=== PATIENT | female | born 1990 | race Caucasian/White ===

== ENCOUNTER 2016-08-06 11:49 | Emergency (ER) | payer BC ==
--- NOTE | 2016-08-06 12:29 | ER Document Report ---
ED Medical Screen (RME) - General Stated Complaint: CHEST PAIN Notes: 26 yo female c/o syncopal episode x 2 this past thursday. hit head when she passed out. c/o dizziness since then. + headache + chest pain since this morning. feels disoriented. substernal chest pain. shortness of breath last night. pt is nonsmoker. + fam cardiac hx. TRAVEL OUTSIDE OF THE [place] IN LAST 30 DAYS: No - Related Data Allergies/Adverse Reactions: No Known Allergies Allergy (Verified 05/14/15 19:24) Physical Exam - Vital signs Vitals: Temp Pulse Resp BP Pulse Ox 98.1 F 74 16 137/87 H 100 08/06/16 12:20 08/06/16 12:20 08/06/16 12:20 08/06/16 12:20 08/06/16 12:20 Course - Vital Signs Vital signs: Temp Pulse Resp BP Pulse Ox 98.1 F 74 16 137/87 H 100 08/06/16 12:20 08/06/16 12:20 08/06/16 12:20 08/06/16 12:20 08/06/16 12:20
[2016-08-06 13:00] LABS: ABSOLUTE EOSINOPHILS # (AUTO) 0.1 10^3/uL (0.0-0.6); ABSOLUTE LYMPHOCYTES (AUTO) 1.8 10^3/uL (0.5-4.7); ABSOLUTE MONOCYTES (AUTO) 0.7 10^3/uL (0.1-1.4); BASOPHILS % (AUTO) 0.3 % (0-2); EOSINOPHILS % (AUTO) 0.7 % (0-6); HEMATOCRIT 36.3 % (36.0-47.0); HEMOGLOBIN 11.5 g/dL (12.0-15.5); HGB HCT DIFFERENCE -1.8; LYMPHOCYTES % (AUTO) 20.8 % (13-45); MEAN CORPUSCULAR HEMOGLOBIN 26.2 pg (27.0-33.4); MEAN CORPUSCULAR HGB CONC 31.7 g/dL (32.0-36.0); MEAN CORPUSCULAR VOLUME 83 fl (80-97); MONOCYTES % (AUTO) 7.7 % (3-13); RED BLOOD COUNT 4.39 10^6/uL (3.72-5.28); RED CELL DISTRIBUTION WIDTH 15.7 % (11.5-14.0); SEGMENTED NEUTROPHILS % (AUTO) 70.5 % (42-78); WHITE BLOOD COUNT 8.5 10^3/uL (4.0-10.5)
[2016-08-06 13:11] LABS: APPEARANCE,URINE CLEAR; BILIRUBIN,URINE NEGATIVE (NEGATIVE); GLUCOSE, URINE NEGATIVE (NEGATIVE); KETONES,URINE NEGATIVE (NEGATIVE); LEUKOCYTE ESTERASE,URINE NEGATIVE (NEGATIVE); NITRITE,URINE NEGATIVE (NEGATIVE); PROTEIN,URINE NEGATIVE (NEGATIVE); URINE SPECIFIC GRAVITY 1.016; UROBILINOGEN,URINE NEGATIVE mg/dL (<2.0)
[2016-08-06 13:26] LABS: ALANINE AMINOTRANSFERASE 29 U/L (9-52); ALBUMIN 4.1 g/dL (3.5-5.0); ALKALINE PHOSPHATASE 84 U/L (38-126); ANION GAP 11 (5-19); ASPARTATE AMINO TRANSFERASE 15 U/L (14-36); BILIRUBIN,TOTAL 0.4 mg/dL (0.2-1.3); BLOOD UREA NITROGEN 13 mg/dL (7-20); CALCIUM 9.8 mg/dL (8.4-10.2); CARBON DIOXIDE 28 mmol/L (22-30); CHLORIDE 101 mmol/L (98-107); CREATINE KINASE 51 U/L (30-135); CREATININE RESULT 0.81 mg/dL (0.52-1.25); GLUCOSE 69 mg/dL (75-110); LIPASE 63.9 U/L (23-300); POTASSIUM 4.5 mmol/L (3.6-5.0); SODIUM 140.3 mmol/L (137-145); TOTAL PROTEIN 7.4 g/dL (6.3-8.2)
[2016-08-06 13:50] LABS: CREATINE KINASE MB < 0.22 ng/mL (<4.55); TROPONIN I < 0.012 ng/mL
--- NOTE | 2016-08-06 14:16 | ER Document Report ---
ED Dizziness/Weakness - General Chief Complaint: Dizziness Stated Complaint: CHEST PAIN Information source: Patient Notes: 26-year-old female with past medical history as recorded who presents today stating around Thursday she started to have some intermittent chest pain with "lightheadedness. She did have nausea without vomiting. Patient states she passed out twice. These were unwitnessed. Patient and family states that the patient has a long history of syncopal like episodes. She has not fainted since Thursday. She states the pain that she feels in her chest as substernal without radiation. She denies any vomiting, fevers, or diarrhea. She denies any dysuria, or missed menstrual periods. She denies any and all lower abdominal pain. TRAVEL OUTSIDE OF THE [place] IN LAST 30 DAYS: No - HPI Patient complains to provider of: Dizziness Onset: Other - See above Onset/Duration: Gradual Quality of pain: Fullness, Pressure Severity: Moderate Pain Level: Denies Associated symptoms: Other - See above Exacerbated by: Change in position - Related Data Allergies/Adverse Reactions: venom-honey bee Allergy (Verified 08/06/16 12:25) Past Medical History - General Information source: Patient - Social History Smoking Status: Never Smoker Cigarette use (# per day): No Chew tobacco use (# tins/day): No Smoking Education Provided: No Frequency of alcohol use: None Drug Abuse: None Family History: Reviewed & Not Pertinent Patient has suicidal ideation: No Patient has homicidal ideation: No Renal/ Medical History: Denies: Hx Peritoneal Dialysis Review of Systems - Review of Systems Constitutional: denies: Fever EENT: Nose congestion, Nose discharge. denies: Eye discharge Cardiovascular: denies: Palpitations, Heart racing, Syncope Respiratory: denies: Short of breath Gastrointestinal: denies: Vomiting Genitourinary: denies: Dysuria Musculoskeletal: denies: Leg swelling Skin: Other - no hives. denies: Rash Neurological/Psychological: Other - no slurred speech -: Yes All other systems reviewed and negative Physical Exam - Vital signs Vitals: Temp Pulse Resp BP Pulse Ox 98.1 F 74 16 137/87 H 100 08/06/16 12:20 08/06/16 12:20 08/06/16 12:20 08/06/16 12:20 08/06/16 12:20 Notes: Reviewed vital signs and nursing note as charted by RN. CONSTITUTIONAL: Alert and oriented and responds appropriately to questions. Well -appearing; well-nourished HEAD: Normocephalic; atraumatic EYES: PERRL CARD: Regular rate and rhythm; no murmurs, no clicks, no rubs, no gallops; symmetric distal pulses RESP: Normal chest excursion without splinting or tachypnea; mild tenderness to anterior palpation of the chest without any obvious swelling or crepitus; breath sounds clear and equal bilaterally; no wheezes, no rhonchi, no rales ABD/GI: Normal bowel sounds; non-distended; soft, non-tender BACK: The back appears normal and is non-tender to palpation, there is no CVA tenderness EXT: Normal ROM in all joints; non-tender to palpation; no cyanosis, no effusions, no edema SKIN: Normal color for age and race; warm; dry; good turgor; capillary refill < 2 seconds; no acute lesions noted NEURO: CN II through XII are intact. Moves all extremities equally; Motor and sensory function intact PSYCH: The patient's mood and manner are appropriate. Grooming and personal hygiene are appropriate. Course - Re-evaluation Re-evalutation: 08/06/16 14:17 EKG shows a heart of 75, normal sinus rhythm, normal axis, no obvious ST elevation. Given the history and physical examination we will order cardiac evaluation including a d-dimer. X-ray of the chest has just been performed. Chest x-ray shows normal heart, normal mediastinum, no fractures, normal lung campo, no pneumothorax. 08/06/16 14:36 D-dimer as recorded. Chest x-ray shows normal heart, normal mediastinum, no fractures, normal lung campo, no pneumothorax. Given the history and physical examination, normal hemoglobin, normal d-dimer, x -ray of the chest as recorded, EKG as recorded, I do not believe that the patient is suffering ACS, PE, or and aortic dissection. Patient will be discharged home with strict return precautions and follow-up with the patient's primary care physician. - Vital Signs Vital signs: Temp Pulse Resp BP Pulse Ox 98.1 F 74 16 137/87 H 100 08/06/16 12:20 08/06/16 12:20 08/06/16 12:20 08/06/16 12:20 08/06/16 12:20 - Laboratory Result Diagrams: 08/06/16 12:35 08/06/16 12:35 Laboratory results interpreted by me: 08/06/16 08/06/16 08/06/16 12:35 12:35 12:40 Hgb 11.5 L MCH 26.2 L MCHC 31.7 L RDW 15.7 H Glucose 69 L Urine Blood MODERATE H Discharge - Discharge Clinical Impression: Chest pain Qualifiers: Chest pain type: other chest pain Qualified Code(s): R07.89 - Other chest pain ; R07.8 - Other chest pain Syncope Qualifiers: Syncope type: unspecified Qualified Code(s): R55 - Syncope and collapse Condition: Good Disposition: HOME, SELF-CARE Additional Instructions: Come back immediately with any increased pain, shortness of breath, calf pain or leg swelling, fevers or vomiting, or any other acute problems. Please make sure that you follow-up with your primary doctor as we have discussed.
[2016-08-06 14:48] VITALS: BP 135/77
--- NOTE | 2016-08-06 14:58 | EKG REPORT ---
SEVERITY:- NORMAL ECG - SINUS RHYTHM : Confirmed by: Karina Arguello MD 06-Aug-2016 14:56:56
== END 2016-08-06 14:46 | disposition home or self-care (01) ==
LOC: ER 11:49
DX: R07.89 Other chest pain (principal); R55 Syncope and collapse; R11.0 Nausea; R09.81 Nasal congestion; J34.89 Other specified disorders of nose and nasal sinuses; Z91.030 Bee allergy status
CPT/HCPCS: 36415; 71020; 80053; 81001; 82550; 82553; 83690; 84484; 85025; 85379; 93005; 93010; 99285

== ENCOUNTER 2019-03-13 14:38 | Emergency (ER) | payer BC ==
[2019-03-13] MEDS ORDERED: PROCHLORPERAZINE EDISYLATE INJ 10 MG/2 ML VIAL IV ONE (15:38)
[2019-03-13] MEDS ORDERED: DIPHENHYDRAMINE HCL 50 MG/ML VIAL IV ONE (15:38)
--- NOTE | 2019-03-13 15:47 | ER Document Report ---
ED Medical Screen (RME) - General Chief Complaint: Headache Stated Complaint: HEAD/NECK PAIN Time Seen by Provider: 03/13/19 15:28 TRAVEL OUTSIDE OF THE [place] IN LAST 30 DAYS: No - HPI Notes: 15:40 Upon completion of the exam when she wait into [facility], she had a brief syncopal episode in the wheel chair (no fall/injury). Pt able to obey commands but does not want to speak much as this time due to pain. cranial nerves still intact. I did review this with Dr. Bishop and we will continue Ct imaging/labs. 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 Patient states that she does have occasional tingling into her hand/fingers on the right side. Patient states that she has not experienced these symptoms before. Movement does make her pain worse. Symptoms began 2 days ago. No recent illness. Denies fever, URI, CP, SOB, Abd pain, dysuria, back pain, or rash. I have treated and performed a rapid initial assessment of this patient. A comprehensive ED assessment and evaluation of the patient, analysis of test results and completion of medical decision making process will be conducted by additional ED providers. PHYSICAL EXAMINATION: GENERAL: Well-appearing, well-nourished and in no acute distress. A&Ox4. Answers questions appropriately. HEAD: Atraumatic, normocephalic. Non-tender. EYES: Pupils equal round and reactive to light, extraocular movements intact, sclera anicteric, conjunctiva are normal. No nystagmus. NECK: Normal range of motion, supple without lymphadenopathy. No rigidity/meningismus. Pt had improvement in discomfort with palpation to the c- paraspinal muscles. LUNGS: Breath sounds clear to auscultation bilaterally and equal. No wheezes rales or rhonchi. HEART: Regular rate and rhythm without murmurs, rubs, gallops. Musculoskeletal: Ext b/l: FROM to passive/active. Strength 5+/5. No deficits noted. No bony tenderness of extremities. Extremities: No cyanosis, clubbing, or edema b/l. Peripheral pulses 2+. Capi llary refill less than 2 seconds. NEUROLOGICAL: NIH 0. GCS 15. Cranial nerves grossly intact. Normal speech, normal gait. Normal sensory, motor exams. Reflexes 2+ b/l. CATALINA's negative. Pronator drift negative. Heel/ackerman, finger/nose wnl. PSYCH: Normal mood, normal affect. SKIN: Warm, Dry, normal turgor, no rashes or lesions noted. - Related Data Allergies/Adverse Reactions: venom-honey bee Allergy (Verified 03/13/19 14:39) Past Medical History - Social History Chew tobacco use (# tins/day): No Frequency of alcohol use: None Drug Abuse: None Renal/ Medical History: Denies: Hx Peritoneal Dialysis Physical Exam - Vital signs Vitals: Temp Pulse Resp BP Pulse Ox 98.5 F 90 13 149/88 H 97 03/13/19 14:52 03/13/19 14:52 03/13/19 14:52 03/13/19 14:52 03/13/19 14:52 Course - Vital Signs Vital signs: Temp Pulse Resp BP Pulse Ox 98.5 F 90 13 149/88 H 97 03/13/19 14:52 03/13/19 14:52 03/13/19 14:52 03/13/19 14:52 03/13/19 14:52
[2019-03-13 16:36] LABS: ABSOLUTE EOSINOPHILS # (AUTO) 0.1 10^3/uL (0.0-0.6); ABSOLUTE MONOCYTES (AUTO) 0.7 10^3/uL (0.1-1.4); BASOPHILS % (AUTO) 0.3 % (0-2); EOSINOPHILS % (AUTO) 0.7 % (0-6); HEMOGLOBIN 12.6 g/dL (12.0-15.5); LYMPHOCYTES % (AUTO) 18.8 % (13-45); MEAN CORPUSCULAR HEMOGLOBIN 25.3 pg (27.0-33.4); MEAN CORPUSCULAR HGB CONC 32.4 g/dL (32.0-36.0); MEAN CORPUSCULAR VOLUME 78 fl (80-97); MONOCYTES % (AUTO) 6.3 % (3-13); PLATELET COUNT 425 10^3/uL (150-450); RED CELL DISTRIBUTION WIDTH 16.1 % (11.5-14.0); SEGMENTED NEUTROPHILS % (AUTO) 73.9 % (42-78); TOTAL CELLS COUNTED % (AUTO) 100 %; WHITE BLOOD COUNT 10.8 10^3/uL (4.0-10.5)
[2019-03-13 16:44] LABS: ALBUMIN 4.4 g/dL (3.5-5.0); ALKALINE PHOSPHATASE 98 U/L (38-126); ANION GAP 9 (5-19); ASPARTATE AMINO TRANSFERASE 20 U/L (14-36); BILIRUBIN,DIRECT 0.3 mg/dL (0.0-0.4); BILIRUBIN,TOTAL 0.5 mg/dL (0.2-1.3); BLOOD UREA NITROGEN 11 mg/dL (7-20); CARBON DIOXIDE 30 mmol/L (22-30); CHLORIDE 101 mmol/L (98-107); GLUCOSE 97 mg/dL (75-110); POTASSIUM 4.3 mmol/L (3.6-5.0); TOTAL PROTEIN 7.9 g/dL (6.3-8.2)
--- NOTE | 2019-03-13 16:44 | ER Document Report ---
ED General - General Chief Complaint: Headache Stated Complaint: HEAD/NECK PAIN Time Seen by Provider: 03/13/19 15:28 Primary Care Provider: GISELL VASQUEZ MD [ACTIVE STAFF] - Follow up as needed Notes: Patient is a 28-year-old female who presents the emergency department with a chief complaint of neck pain. She states that her neck pain started 3 days ago. She states that she also has some tingling in her fingers that started this morning. She also states that she has had some blurry vision and floaters. In triage she she ended up having a syncopal episode in triage. Patient states that she has tried to take ibuprofen, Tylenol, and her tizanidine, but has had little relief. Patient also states that she has factor V Leiden, but is not on anticoagulants at this time. Denies any shortness of breath, breathing, weakness in her legs, tingling or numbness in her legs. Patient states that her pain is mainly in her neck. She denies any fever, vomiting, or weakness. TRAVEL OUTSIDE OF THE [place] IN LAST 30 DAYS: No - Related Data Allergies/Adverse Reactions: venom-honey bee Allergy (Verified 03/13/19 14:39) Past Medical History - General Information source: Patient, Parent - Social History Smoking Status: Never Smoker Chew tobacco use (# tins/day): No Frequency of alcohol use: None Drug Abuse: None Family History: Reviewed & Not Pertinent Patient has suicidal ideation: No Patient has homicidal ideation: No Renal/ Medical History: Denies: Hx Peritoneal Dialysis Review of Systems - Review of Systems Notes: REVIEW OF SYSTEMS: CONSTITUTIONAL : Denies recent illness. Denies recent unintentional weight loss. Denies fever, chills, or sweats. EENT: Denies eye, ear, throat, or mouth pain, discharge, or symptoms. Denies nasal or sinus congestion. CARDIOVASCULAR: Denies chest pain. RESPIRATORY: Denies shortness of breath, cough, congestion, difficulty breathing, or wheezing. GASTROINTESTINAL: Denies nausea, vomiting, and diarrhea. Denies abdominal pain. Denies constipation. GENITOURINARY: Denies difficulty urinating, burning, blood in urine, urgency or frequency. MUSCULOSKELETAL: Denies neck and back pain. Denies joint pain or swelling. SKIN: Denies rash, itchiness, or lesions HEMATOLOGIC : Denies easy bruising or bleeding. LYMPHATIC: Denies swollen, painful, enlarged glands. NEUROLOGICAL: See HPI. PSYCHIATRIC: Denies stress, anxiety, alteration in sleep patterns, or depression. All other systems reviewed and negative. Physical Exam - Vital signs Vitals: Temp Pulse Resp BP Pulse Ox 98.5 F 90 13 149/88 H 97 03/13/19 14:52 03/13/19 14:52 03/13/19 14:52 03/13/19 14:52 03/13/19 14:52 - Notes Notes: PHYSICAL EXAMINATION: GENERAL: Appears well, healthy, well-nourished, no acute distress. HEAD: Normocephalic, atraumatic. EYES: PERRL, conjunctiva normal, all extraocular movements intact, sclera nonicteric ENT: Moist mucous membranes. NECK: Supple, no noticeable swelling, redness, rash. Normal range of motion. LUNGS: Equal breath sounds bilaterally and clear to auscultation. No wheezes rales or rhonchi. CARDIOVASCULAR: S1-S2, regular rate, regular rhythm. Radial pulses 2+, normal. ABDOMEN: Normoactive bowel sounds. Soft, nontender, no guarding, no rebound tenderness, and no masses palpated. EXTREMITIES: Normal strength and range of motion, no pitting or edema. No cyanosis. NEUROLOGICAL: Moves all extremities upon command. Strength 5/5 in all extremities. PSYCH: Normal mood, normal affect. SKIN: Warm, dry. No rash, lesions, ulcerations noted. Normal skin turgor. MSK: Tenderness noted to the paraspinal muscles of the neck. Course - Re-evaluation Re-evalutation: 03/13/19 18:00 Patient has a slightly elevated white blood cell count of 10,800. Her hemoglobin hematocrit are all stable. No anemia noted. Her chemistries are unremarkable. Her serum hCG is negative. CT of the head and neck are un remarkable. Patient states that she still has a headache neck pain. I will give her some Toradol to help. No nuchal rigidity noted. 03/13/19 18:45 Patient states that she feels better after receiving Toradol. I have very low suspicion for meningitis or any life-threatening etiology at this time. I have advised the patient to follow-up with Dr. Vasquez in regards to this visit, as she can further investigate her factor V Leiden. Follow-up precautions were given. Verbal discharge instructions were given to the patient. They verbalized understanding. They are stable for discharge. - Vital Signs Vital signs: Temp Pulse Resp BP Pulse Ox 98.0 F 81 18 137/87 H 95 03/13/19 19:31 03/13/19 19:31 03/13/19 19:31 03/13/19 19:31 03/13/19 19:31 - Laboratory Result Diagrams: 03/13/19 16:10 03/13/19 16:10 Laboratory results interpreted by me: 03/13/19 16:10 WBC 10.8 H MCV 78 L MCH 25.3 L RDW 16.1 H - EKG Interpretation by Me Additional EKG results interpreted by me: 03/13/19 Sinus rhythm. Rate 77. MD 172; QRS 90; QT 400; QTc 450. No ST elevations or depressions noted. Discharge - Discharge Clinical Impression: Neck pain Headache Qualifiers: Headache type: unspecified Headache chronicity pattern: unspecified pattern Intractability: not intractable Qualified Code(s): R51 - Headache Condition: Stable Disposition: HOME, SELF-CARE Additional Instructions: You were seen today in the emergency department for neck pain and a headache. Your symptoms improved with Toradol. You are being sent home with a prescript ion for Toradol. Please follow-up as needed with the manager cable below in regards to this visit. Please follow-up with a primary care provider when you are able to establish primary care. Prescriptions: Ketorolac Tromethamine [Toradol 10 mg Tablet] 10 mg PO Q6HP PRN #20 tablet PRN Reason: Referrals: GISELL VASQUEZ MD [ACTIVE STAFF] - Follow up as needed
--- NOTE | 2019-03-13 17:12 | RADIOLOGY REPORT (SQ) ---
EXAM DESCRIPTION: CT HEAD WITHOUT; CT CERVICAL SPINE WITHOUT COMPLETED DATE/TIME: 03/13/2019 4:56 pm REASON FOR STUDY: headache/neck pain; neck pain COMPARISON: None. TECHNIQUE: Axial images acquired through the BRAIN AND cervical spine without intravenous contrast. Images reviewed with BRAIN, SUBDURAL, lung, soft tissue and bone windows. Reconstructed coronal and sagittal MPR images reviewed. Images stored on PACS. All CT scanners at this facility use dose modulation, iterative reconstruction, and/or weight based d osing when appropriate to reduce radiation dose to as low as reasonably achievable (ALARA). [facility]: Dose Right [facility]: CareDose [facility]: Dose Right [facility]: Teradose 4D [facility]: Smart [employer] RADIATION DOSE: CT Rad equipment meets quality standard of care and radiation dose reduction techniq ues were employed. CTDIvol: 53.2 mGy. DLP: 1070 mGy-cm.; CT Rad equipment meets quality standard of c are and radiation dose reduction techniques were employed. CTDIvol: 27.6 mGy. DLP: 645 mGy-cm. mGy. LIMITATIONS: None. FINDINGS: Brain Normal. No fracture. No hemorrhage or mass or shift. Clear paranasal sinuses. Intact orbits. Cervical spine Normal alignment. No fracture. Normal soft tissues. IMPRESSION: 1. Normal CT brain. 2. Normal CT cervical spine. TECHNICAL DOCUMENTATION: JOB ID: [id number] Quality ID # [id number]: Final reports with documentation of one or more dose reduction techniques (e.g., Au tomated exposure control, adjustment of the mA and/or kV according to patient size, use of iterative reconstruction technique) 2010 [employer]- All Rights Reserved Reading location - IP/workstation name: [email or web address]
--- NOTE | 2019-03-13 17:12 | RADIOLOGY REPORT (SQ) ---
EXAM DESCRIPTION: CT HEAD WITHOUT; CT CERVICAL SPINE WITHOUT COMPLETED DATE/TIME: 03/13/2019 4:56 pm REASON FOR STUDY: headache/neck pain; neck pain COMPARISON: None. TECHNIQUE: Axial images acquired through the BRAIN AND cervical spine without intravenous contrast. Images reviewed with BRAIN, SUBDURAL, lung, soft tissue and bone windows. Reconstructed coronal and sagittal MPR images reviewed. Images stored on PACS. All CT scanners at this facility use dose modulation, iterative reconstruction, and/or weight based d osing when appropriate to reduce radiation dose to as low as reasonably achievable (ALARA). [facility]: Dose Right [facility]: CareDose [facility]: Dose Right [facility]: Teradose 4D [facility]: Smart [employer] RADIATION DOSE: CT Rad equipment meets quality standard of care and radiation dose reduction techniq ues were employed. CTDIvol: 53.2 mGy. DLP: 1070 mGy-cm.; CT Rad equipment meets quality standard of c are and radiation dose reduction techniques were employed. CTDIvol: 27.6 mGy. DLP: 645 mGy-cm. mGy. LIMITATIONS: None. FINDINGS: Brain Normal. No fracture. No hemorrhage or mass or shift. Clear paranasal sinuses. Intact orbits. Cervical spine Normal alignment. No fracture. Normal soft tissues. IMPRESSION: 1. Normal CT brain. 2. Normal CT cervical spine. TECHNICAL DOCUMENTATION: JOB ID: [id number] Quality ID # [id number]: Final reports with documentation of one or more dose reduction techniques (e.g., Au tomated exposure control, adjustment of the mA and/or kV according to patient size, use of iterative reconstruction technique) 2010 [employer]- All Rights Reserved Reading location - IP/workstation name: [email or web address]
[2019-03-13] MEDS ORDERED: KETOROLAC TROMETHAMINE INJ/PF 30 MG/1 ML SDV IV ONE (17:59)
--- NOTE | 2019-03-13 18:23 | EKG REPORT ---
SEVERITY:- NORMAL ECG - SINUS RHYTHM : Confirmed by: Jose Badillo MD 13-Mar-2019 18:22:16
[2019-03-13 20:01] VITALS: BP 137/87
== END 2019-03-13 19:44 | disposition home or self-care (01) ==
LOC: ER 14:38
DX: M54.2 Cervicalgia (principal); R51 Headache; D72.829 Elevated white blood cell count, unspecified; R20.2 Paresthesia of skin; H53.8 Other visual disturbances; R55 Syncope and collapse; Z91.030 Bee allergy status
CPT/HCPCS: 93005; 99284; 96374; 96375; 36415; 84703; 85025; 80053; 70450; 72125; 93010; J1200; J1885; J0780